=== PATIENT | male | born 1980 | race Caucasian/White ===

== ENCOUNTER → 2020-01-12 | Outpatient (CLI) | payer BC ==
[~2020-01-12] MED LIST: NAPR220T70 PO; OMEP20CA16 PO; OXYC1TAB15 PO
== END ==
LOC: LAB 14:24
PROVIDERS: ATTEND Surgery
DX: Z01.812 Encounter for preprocedural laboratory examination (principal); K81.1 Chronic cholecystitis; Z20.828 Contact with and (suspected) exposure to other viral communicable diseases
CPT/HCPCS: U0003

== ENCOUNTER 2020-01-16 10:33 | Day surgery (SDC) | payer BC ==
[~2020-01-16] VITALS: Ht 175.3 cm; Wt 75.5 kg
[~2020-01-16 10:33] MED LIST changes: +ACETAMINOPHEN 500 MG TABLET PO PRN; +BUPIVACAINE-EPI 0.25%-1:200000 MPF 30 ML VIAL. INJ ONE; +HYDROmorphone 2 MG/ML VIAL IV PRN; +INDOCYANINE GREEN 2.5 MG in TOTAL VOLUME SYRINGE 1 ML IVP ONE; +IV RINGERS,LACTATED 1000ML 1,000 ML IV SCH; +LIDOCAINE 1% PF 2 ML VIAL. ID PRN; +MORPHINE SULFATE 2 MG/ML VIAL. IV PRN; +ONDANSETRON PF 4 MG/2 ML VIAL. IV PRN; -OXYC1TAB15 PO; +ceFAZolin SODIUM IV Push 1 GM VIAL. IVP PRN; +fentaNYL PF VIAL 100 MCG/2 ML VIAL IV PRN
[2020-01-16] MEDS ORDERED: SURGICEL HEMOSTAT 4X8 EACH. ONE (11:41)
[2020-01-16] MEDS ORDERED: ROCURONIUM 50 MG/5 ML VIAL. ONE (12:08)
[2020-01-16] MEDS ORDERED: fentaNYL PF VIAL 250 MCG/5 ML VIAL ONE (12:43)
[2020-01-16] MEDS ORDERED: DEXAMETHASONE SOD PHOS 20 MG/5 ML VIAL. ONE (13:07)
[2020-01-16] MEDS ORDERED: LIDOCAINE 2% PF 5 ML VIAL. ONE (13:07)
[2020-01-16] MEDS ORDERED: SEVOFLURANE 61 TO 120 MINUTES. IH ONE (13:07)
[2020-01-16] MEDS ORDERED: ONDANSETRON PF 4 MG/2 ML VIAL. ONE (13:07)
[2020-01-16] MEDS ORDERED: PROPOFOL 100 ML IV ONE (13:07)
[2020-01-16] MEDS ORDERED: GLYCOPYRROLATE 1 MG/5 ML VIAL. ONE (13:08)
[2020-01-16] MEDS ORDERED: NEOSTIGMINE METHYLSULFATE 5 MG/5 ML SYRINGE. ONE (13:08)
--- NOTE | 2020-01-16 13:08 | PDOC4 ---
Operative Note Operative Note Date: January 16, 2020 at 1305 Preoperative diagnosis: Chronic cholecystitis cholelithiasis Postoperative diagnosis: Same Procedure: Robotic assisted laparoscopic cholecystectomy with ICG 9 cho langiogram Surgeon: Josh Specimen: Gallbladder Dictation: Patient is a 39-year-old male has had right upper quadrant abdominal pain postprandial nausea. Ultrasound of his gallbladder showed gallstones. Procedure of robotic assisted laparoscopic cholecystectomy was explained to the patient detail risk benefits were also discussed including bleeding infection injury to intra-abdominal contents possible necessitating further or open operations alternatives to this procedure also discussed with the patient who seemed to understand and gave both verbal and written consent to have the procedure performed. Patient was taken to the operating room placed in the supine position general anesthesia was initiated once patient was sleeping intubated his abdomen was prepped and draped usual sterile fashion using ChloraPrep. An area just below the umbilicus was injected with quarter percent Marcaine with epinephrine incision was made 11 blade scalpel and a varies needle was placed within the abdomen creating pneumoperitoneum once this complete 12 mm port was placed and a da Thiago camera was placed within the abdomen which was inspected no other abnormalities were noted. A 8 mm da Thiago port was placed in the right midabdomen and 8 mm da Thiago port was placed in the left midabdomen alligator grasper was placed in the left upper quadrant the da Thiago robot was brought and docked all port sites surgeon went to the robotic console using a grasper and hook cautery the infundibular gallbladder is grasped retracted laterally while the dome of the gallbladder is grasped with a alligator clamp retracted cephalad the triangle was taken down with adherent tissue using blunt and sharp dissection exposing the cystic duct and cystic artery ICG 9 cholangiogram was performed showed no obstruction stones within the cystic or common bile duct. The cystic duct was then doubly clipped and transected the cystic artery was clipped and transected the gallbladder is taken off the liver with hook electrocautery. At this point surgeon went back to the operative field the da Thiago robot was undocked all port sites a Endo Catch bag was placed through the umbilical port site the gallbladder is grasped placed in the Endo Catch bag removed and the umbilicus right upper quadrant was irrigated and sucti oned dry hemostasis to be appropriate the pneumoperitoneum was reduced all ports were removed the fascial defect at the umbilicus closed with [id number] 0 Vicryl suture and skin was reapproximated all port sites for subcuticular Monocryl Mastisol Steri-Strips and island dressings were applied. Patient was awakened and extubated in the operating room taken to recovery in stable condition all sponge instrument needle counts listed as correct estimated blood loss 5 mL JAYLYN PAREDES MD Jan 16, 2020 13:08
[2020-01-16] MEDS ORDERED: fentaNYL PF VIAL 100 MCG/2 ML VIAL ONE (13:09)
[2020-01-16] MEDS ORDERED: PROCHLORPERAZINE 10 MG/2 ML VIAL. ONE (13:10)
--- NOTE | 2020-01-16 13:10 | DISCH ---
DISCHARGE INSTRUCTIONS Condition on Discharge Condition on Discharge: Stable Activity After Discharge Activity Instructions for Disc: Activity as tolerated Other activity instructions: No lifting more than 20 pounds for 2 weeks Diet after Discharge Diet after Discharge: Low Fat Wound Incision Care Other wound/incision instructi: May shower in 24 hours Contacting the [facility] after DC Call your doctor for: If your condition worsens Follow-Up Follow up with: Dr. Paredes in 2 weeks JAYLYN PAREDES MD Jan 16, 2020 13:10
[2020-01-16] MEDS: fentaNYL PF VIAL 100 MCG/2 ML VIAL IV PRN ×4 (13:20→14:24)
[2020-01-16] MEDS ORDERED: OXYC1TAB15 PO (13:21)
[2020-01-16] MEDS: PROCHLORPERAZINE 10 MG/2 ML VIAL. IV PRN ×2 (13:28→13:41)
[2020-01-16] MEDS ORDERED: oxyCODONE/APAP 5/325 1 TAB TABLET PO ONE (13:30)
[2020-01-16 14:40] VITALS: BP 122/72
--- NOTE | 2020-01-22 15:07 | PATHOLOGY ---
[facility] Accession Number: [id number] . 01 Material submitted: . gallbladder - GALLBLADDER AND CONTENTS . 01 Clinical history: . CHRONIC CHOLECYSTITIS WITH CALCULUS . 02 Diagnosis: Gallbladder, laparoscopic cholecystectomy: - Cholelithiasis. - Chronic cholecystitis. ([facility] 01/22/2020) . [facility] 01/22/2020 1033 Local . 02 Comment: There is no evidence of malignancy. ([facility] 01/22/2020) . 02 Electronically signed: . Juan Johnston MD, Pathologist NPI- [id number] . 01 Gross description: . Received in formalin labeled "Juan Loyd, gallbladder and contents" is an intact cholecystectomy specimen measuring 7.5 x 3.2 x 2.5 cm. The serosa is monique-green and smooth with a full thickness defect in the hepatic bed measuring 0.3 cm and the specimen is opened to reveal dark green velvety mucosa without polyps or masses. The average wall thickness is 0.1 cm. One dark brown ovoid calculus is present within the gallbladder measuring 1.5 cm in greatest dimension. Clinical Admissions Manager sections of the fundus and body and the cystic duct margin are submitted in A1. ([facility]; 01/19/2020) [facility] 01/19/2020 1304 Local . 02 Pathologist provided ICD-10: K80.10 . 02 CPT . 234075 Specimen Comment: A courtesy copy of this report has been sent to [phone], [phone] Specimen Comment: [id number] Specimen Comment: Report sent to / DR GOMEZ Performed at: [facility] [address] [place] [address] [address], [place], [place] [id number] MD Alireza Ragland MD Phone: [phone] Performed at: [id number] [place], [place] [id number] MD Juan Johnston MD Phone: [phone]
== END 2020-01-16 15:00 | disposition home or self-care (01) ==
LOC: SURG 10:33 → EDUNIT# 12:00 → SURG 15:00
PROVIDERS: ATTEND Surgery
DX: K80.10 Calculus of gallbladder with chronic cholecystitis without obstruction (principal); K21.9 Gastro-esophageal reflux disease without esophagitis; Z79.899 Other long term (current) drug therapy; Z98.890 Other specified postprocedural states
CPT/HCPCS: 47563; 88304; J0690; J0780; J1100; J2405; J2704; J2710; J3010; J3490; J7120; S2900; 74300